=== PATIENT | female | born 1975 | race Caucasian/White ===

== ENCOUNTER 2020-06-14 07:14 | Day surgery (SDC) | payer OTHER, MEDICAID, SELFPAY ==
[~2020-06-14] VITALS: Ht 162.6 cm; Wt 54.9 kg
[2020-06-14] MEDS ORDERED: fentaNYL CITRATE/PF 100 MCG/2 ML AMP ONE (07:38)
[2020-06-14] MEDS ORDERED: CEFAZOLIN 1 GM IVPB PREMIX 50 ML IV ONE (08:49)
[2020-06-14] MEDS: MIDAZOLAM HCL 5 MG/5 ML VIAL ONE ×2 (08:52→08:54)
[2020-06-14 09:31] VITALS: BP_SYST 158
== END 2020-06-14 11:25 | disposition home or self-care (01) ==
LOC: SDS 07:14
PROVIDERS: ATTEND Internal Medicine
DX: R13.10 Dysphagia, unspecified (principal); G35 Multiple sclerosis; Z79.899 Other long term (current) drug therapy
CPT/HCPCS: 43246; 99152; G0378; J0690; J2250; J7030; J3010